=== PATIENT | female | born 1990 | race Two or more races ===

== ENCOUNTER 2024-04-12 07:12 | Observation (INO) | payer BC, SELFPAY ==
[2024-04-12] VITALS (71 sets, daily range): BP systolic 103–117; BP diastolic 62–73; PULSE 66–142; RESP 16; TEMP 36.9; O2SAT 95–100; BMI 31.1
[2024-04-12 08:15] LABS: Collection Type, Urine Clean Catch
[2024-04-12] MEDS: RINGERS LACTATED 1000 ML 1,000 ML 999 ML IV (08:18)
[2024-04-12 08:27] LABS: Bacteria,Urine 2+; Bilirubin,Urine Negative (Negative); Blood,Urine Negative (Negative); Clarity,Urine Turbid (Clear/Hazy); Color,Urine Yellow (Lt Yel-Yel); Glucose, Urine Negative (Negative); Ketones,Urine Negative (Negative); Leukocyte Esterase,Urine Positive (Negative); Nitrite,Urine Negative (Negative); PH,Urine 7.5 (5.0-7.0); Protein,Urine Trace (Neg - Trace); RBC,Urine 3 /hpf (0-3); Specific Gravity,Urine 1.021 (1.001-1.035); Squamous Epithelial Cell,Urine 19 /hpf (0-5); Urobilinogen,Urine Negative mg/dL (0.0-1.0); WBC,Urine 7 /hpf (0-5)
[2024-04-12] MEDS: BETAMET ACET/BETAMET NA PH (Celestone) 6 MG/ML VIAL 12 MG IM (08:28)
[2024-04-12] MEDS: TERBUTALINE SULF INJ 1 MG/ML VIAL 0.25 MG SC ×2 (08:31→10:13)
[2024-04-12] MEDS: cefTRIAXone/D5w 1gm IV premix 50 ML IV (10:07)
== END 2024-04-12 13:55 | disposition home or self-care (01) ==
PROVIDERS: Admitting Provider Specialist; Visit Provider Specialist
DX: O26.893 Other specified pregnancy related conditions, third trimester (principal); Z3A.34 34 weeks gestation of pregnancy; R25.2 Cramp and spasm
CPT/HCPCS: 59025; 59899; 81001; 82731; 96372; J0696; J0702; J3105; J7120

== ENCOUNTER 2024-04-13 08:27 | Outpatient (CLI) | payer BC, SELFPAY ==
[2024-04-13 08:31] VITALS: BP 109/68; PULSE 85
[2024-04-13 08:42] VITALS: BMI 31.3
[2024-04-13] MEDS: BETAMET ACET/BETAMET NA PH (Celestone) 6 MG/ML VIAL 12 MG IM (08:58)
== END 2024-04-13 10:00 | disposition home or self-care (01) ==
LOC: S4S1 08:28 → S4SX 08:29
PROVIDERS: Referring Provider Specialist; Visit Provider Specialist
DX: Z34.03 Encounter for supervision of normal first pregnancy, third trimester (principal); Z36.9 Encounter for antenatal screening, unspecified; Z3A.34 34 weeks gestation of pregnancy
CPT/HCPCS: 59025; 96372; J0702

== ENCOUNTER 2024-05-15 22:29 | Observation (INO) | payer BC, SELFPAY ==
[2024-05-15 22:35] VITALS: BP 124/80; PULSE 65; PULSE 72; RESP 16; RESP 18; RESP 99; TEMP 36.6; O2SAT 99
[2024-05-15 22:38] VITALS: BP 124/80; PULSE 65
[2024-05-15 23:11] VITALS: TEMP 36.6; BMI 33.2
[2024-05-16 00:01] VITALS: BP 113/76; PULSE 72
== END 2024-05-16 00:50 | disposition home or self-care (01) ==
PROVIDERS: Admitting Provider Specialist; Visit Provider Specialist
DX: Z34.03 Encounter for supervision of normal first pregnancy, third trimester (principal); Z3A.38 38 weeks gestation of pregnancy
CPT/HCPCS: 59025; 59899

== ENCOUNTER 2024-05-16 04:00 | Inpatient (IN) | payer BC, SELFPAY ==
--- NOTE | 2024-05-14 07:40 | ESHP_ITS ---
RE: MANUELA ORELLANA : 1990 DATE OF ADMISSION: 05/16/2024 HISTORY OF PRESENT ILLNESS: This is a 33-year-old 1, para 0 with a due date of 05/23/2024 with an intrauterine at 39 weeks and 0 days on 05/16/2024 who presents for contractions in labor with cholestasis of . The patient's care has been complicated by cholestasis of for which she has been taking ursodiol. Her bile acid levels have been less than 10 on ursodiol. Her most recent level on 04/25 was 2.3 with normal liver function tests. The patient reports normal movement. She denies any leaking or bleeding. The patient transferred to [facility] at 30 weeks of gestation. She received betamethasone on 04/12 and 04/13 for threatened labor. PAST MEDICAL HISTORY: Advanced maternal age, Rh negative, carpal tunnel syndrome, cholestasis of . ALLERGIES: NO KNOWN DRUG ALLERGIES. MEDICATIONS: 1. Ursodiol 300 mg one p.o. b.i.d. 2. vitamin 1 p.o. daily. 3. Baby aspirin 81 mg one p.o. daily. FAMILY HISTORY: Paternal grandmother has breast cancer and sister has depression and anxiety. PAST SURGICAL HISTORY: Denies. REVIEW OF SYSTEMS: She denies any chest pain, palpitations, cough, fever, shortness of breath, or lower extremity pain. PHYSICAL EXAMINATION: VITAL SIGNS: Blood pressure 110/70, heart rate 88, respirations 18, and temperature 98.2. HEENT: Oropharynx and sclerae are clear. LUNGS: Clear to auscultation bilaterally. HEART: Regular rate and rhythm. ABDOMEN: Gravid. Term size consistent with estimated weight 7 pounds. PELVIC: See RN notes. EXTREMITIES: Nontender. SKIN: No gross or lesion. NEUROLOGIC: No focal deficits. ASSESSMENT AND PLAN: Intrauterine at 39 weeks and 0 days on 05/16, cholestasis of , active labor, anticipated spontaneous vaginal delivery. Informed consent was obtained. The patient was made aware of the risks, complications, alternatives, and benefits of the proposed procedure and she agrees. DT: 13:06:18 TT: 13:40:00 Ref: [id number] - TID: [id number] MTDD
[2024-05-16] VITALS (322 sets, daily range): BP systolic 0–199; BP diastolic 0–88; PULSE 55–158; RESP 17–22; TEMP 36.8–37.8; O2SAT 80–100; BMI 31.1
[2024-05-16] MEDS: RINGERS LACTATED 500 ML 500 ML 999 ML IV (04:20)
[2024-05-16 04:44] LABS: Basophils # (Auto) 0.1 Thou/mm3 (0.0-0.2); Basophils % (Auto) 0 % (0-2.5); Eosinophils % (Auto) 0 % (0-10); Hematocrit 37.7 % (36.0-46.0); Hemoglobin 13.3 g/dL (12.0-16.0); Immature Granulocytes % (Auto) 1 % (0-0); Immature Granulocytes Auto 0.14 Thou/mm3 (0.00-0.00); Lymphocytes # (Auto) 2.1 Thou/mm3 (1.0-4.8); Lymphocytes % (Auto) 11 % (10-50); Mean Corpuscular HGB Conc 35.3 g/dl (31.0-37.0); Mean Corpuscular Hemoglobin 30.9 pg (25.0-35.0); Mean Corpuscular Volume 88 fL (80-100); Monocytes # (Auto) 0.8 Thou/mm3 (0.0-0.8); Monocytes % (Auto) 4 % (0-12); Neutrophils % (Auto) 85 % (37-80); Nucleated Red Blood Cell % 0 /100 WBC (0); Platelet Count 306 Thou/mm3 (140-440); RDW Standard Deviation 43.8 fL (36.4-46.3)
[2024-05-16] MEDS: fentaNYL CIT INJ 50 mCg/ML AMP 2ML 100 MCG IV (04:55)
[2024-05-16] MEDS: RINGERS LACTATED 1000 ML 1,000 ML 125 ML IV ×4 (05:06→08:33)
[2024-05-16 05:19] LABS: Syphilis Nonreactive (Nonreactive)
[2024-05-16] MEDS: Ampicillin Inj 2,000 MG in SODIUM CHLORIDE 0.9% (P) 100 ML 100 MG IV (07:19)
[2024-05-16] MEDS: GENTAMICIN/NS 80 MG IVPB 80 MG/50 ML PIGGYBACK 100 MG IV (08:01)
[2024-05-16] MEDS: ursodioL 300 MG CAPSULE PO (09:13)
[2024-05-16] MEDS: OXYTOCIN in NS 20 units 20 UNIT/1,000 ML BAG 125 UNIT IV (14:10)
[2024-05-16] MEDS: METHYLERGONOVINE INJ 0.2 MG/ML VIAL IM (14:22)
[2024-05-16] MEDS: LIDOCAINE HCL 1% 20 ML VIAL INFL (14:35)
[2024-05-16] MEDS: BENZO/LANO/ALOE (Dermoplast) 60 GM CAN 1 SPRAY TOP (14:36)
[2024-05-16] MEDS: IBUPROFEN TAB 400 MG TABLET 800 MG PO (14:37)
--- NOTE | 2024-05-16 14:52 | OBDSUM_ITS ---
Vacuum Assisted Delivery General Patient Counseled by physician:: Yes Informed consent to patient:: Yes Estimated weight:: 7 lb 8 oz Cervical dilation:: fully dilated station:: +2 position:: OA Molding:: No Caput:: Yes Vacuum Application Vacuum type:: Mityvac Vacuum application:: flexing median Total vacuum time (min):: 9 Maximum pressure (cm Hg):: 50 Cup Placement Flexion point identified:: Yes Cup approp. for head position:: Yes Maternal tissue excluded:: Yes Vacuum Procedure Number of pulls (contractions):: 6 Number of pop-offs:: 3 Recommended range maintained:: Yes Vacuum reduced between pulls:: Yes Advancement made each pull:: Yes Vacuum successful:: Yes Immediate Evaluation Immediate assessment:: caput Data (Snyder) Data : 1 Para: 0 Term: 0 : 0 : 0 Delivery Data (Snyder) Labor Data ROM Date: 05/16/24 ROM Time: 04:50 Rupture Type: SROM Amniotic Fluid: Clear Delivery Data EDC: 05/23/24 EDC calculated by:: LMP/early US confirmation Labor Onset Stage 1 Date: 05/16/24 Labor Onset Stage 1 Time: 04:26 Labor Onset Stage 2 Date: 05/16/24 Labor Onset Stage 2 Time: 11:32 Delivery Date: 05/16/24 Delivery Time: 14:10 Gestational age (weeks): 39 Gestational age (days): 0 Placenta Delivery Date: 05/16/24 Placenta Delivery Time: 14:40 Delivered by: Alvarez Palacios Delivery nurse: Joleen Yoder Other staff at delivery: Nurse Other staff at delivery: Nursery Nurse Other staff at delivery: Survival Specialist Other staff at delivery: Other staff at delivery: Sandra Purdy Other staff at delivery: Elke Ornelas Other staff at delivery: Jorge rhodes Other staff at delivery: garret Munroe Delivery Method Delivery: Vaginal Delivery Type: Vacuum Assisted Presentation: Vertex Position: OA Anesthesia Type Primary Anesthesia: Epidural Secondary Anesthesia: Local Placenta Placenta Delivery: Spontaneous Placenta Cultures Obtained: Yes Placenta Sent for Examination: Yes Cord Sample: Cord Blood Obtained, Cord Gases Arterial and Cord Gases Venous Lacerations #2: Perineal: 2nd degree Periurethral: 2nd degree Labial: 1st degree Perineal repair Sutures used for repair: 3.0 Chromic EBL Estimated blood loss (ml): 250 Additional Procedures None Complications Complications: None [place] Data (Snyder) Data Gender: Female Infant Weight Grams: 3140 1 Minute Total: 6 5 Minute Total: 8
[2024-05-16] MEDS: MISOPROSTOL 200 mCg TABLET 800 MCG PR (14:54)
--- NOTE | 2024-05-16 15:13 | PD.LDDS ---
DS: Providers Provider Date of admission: 05/16/24 04:00 Primary care physician: Physician No Primary/Family Admitting Provider: Alvarez Palacios MD Attending Provider on Admission: Alvarez Palacios MD Attending Provider on DC: Alvarez Palacios MD Discharging Provider: Alvarez Palacios MD DS: Diagnosis Problem List Completed Was Problem List Reviewed/Reconciled?: Yes Summary/Hosp Course Time Spent with Patient Time attestation: Total time spent providing and/or coordinating discharge services: Exam Vital Signs Temp Pulse Resp BP Pulse Ox 98.4 F 80 18 155/72 H 95 05/16/24 12:53 05/16/24 14:57 05/16/24 07:00 05/16/24 14:57 05/16/24 15:12 Discharge Plan Plan Patient Disposition: HOME (Self Care) Patient condition on transfer: Stable Prescriptions/Referrals Prescriptions/Med Rec: New amoxicillin-pot clavulanate 875-125 mg tablet 1 tab PO BID Qty: 10 0RF ibuprofen 600 mg tablet 600 mg PO Q6H PRN (Reason: pain) Qty: 30 0RF Discontinued ursodiol 300 mg capsule 300 mg PO BID Patient Comments: Take 1 capsule by mouth twice a day aspirin 81 mg Capsule 81 mg PO QDAY Referrals: No Primary/Family,Physician [Primary Care Provider] - Patient/Caregiver Discharge Instructions Discharge Activity: activity as tolerated Other Discharge Activity Instructions:: Follow up office 6 weeks. Print Language: Kyrgyz Stand Alone Forms: Kelle Award Info., Patient Portal Info Letter Discharge Order Discharge Orders: Discharge (Routine); Ordered 05/18/24 Ordered By: Alvarez Palacios Planned Discharge Date 05/18/24
[2024-05-16] MEDS: AMPICILLIN/SULBAC INJ 3 GM in SODIUM CHLORIDE 0.9% (P) 100 ML IV ×2 (17:58→23:57)
[2024-05-16 21:57] LABS: Basophils % (Auto) 0 % (0-2.5); Eosinophils % (Auto) 0 % (0-10); Hematocrit 30.8 % (36.0-46.0); Hemoglobin 10.9 g/dL (12.0-16.0); Immature Granulocytes % (Auto) 1 % (0-0); Immature Granulocytes Auto 0.18 Thou/mm3 (0.00-0.00); Lymphocytes # (Auto) 1.7 Thou/mm3 (1.0-4.8); Lymphocytes % (Auto) 8 % (10-50); Mean Corpuscular HGB Conc 35.4 g/dl (31.0-37.0); Mean Corpuscular Hemoglobin 31.5 pg (25.0-35.0); Mean Corpuscular Volume 89 fL (80-100); Monocytes # (Auto) 1.4 Thou/mm3 (0.0-0.8); Monocytes % (Auto) 7 % (0-12); Neutrophils # (Auto) 18.5 Thou/mm3 (1.8-7.7); Neutrophils % (Auto) 85 % (37-80); Nucleated Red Blood Cell % 0 /100 WBC (0); Platelet Count 243 Thou/mm3 (140-440); RDW Standard Deviation 45.2 fL (36.4-46.3); Red Blood Count 3.46 Miln/mm3 (4.00-5.20); White Blood Count 21.8 Thou/mm3 (3.6-11.0)
[2024-05-16] MEDS: ACETAMINOPHEN 325 MG TABLET 650 MG PO (23:56)
--- NOTE | 2024-05-17 00:09 | PC.NURSE ---
05/17/24 2350: pts. temp 100.0, pain 07/15. Pt states she would like some pain medication. Tylenol 650mg administered PO. Scheduled antibiotic Unasyn 3gm administered IV PB. Pt. provided with ice water and cooling cloths placed on forehead and bilateral underarms.
[2024-05-17 04:00] VITALS: BP 100/64; RESP 20; TEMP 36.9; O2SAT 97
[2024-05-17 05:28] LABS: Basophils # (Auto) 0.1 Thou/mm3 (0.0-0.2); Basophils % (Auto) 0 % (0-2.5); Eosinophils # (Auto) 0.1 Thou/mm3 (0.0-0.5); Eosinophils % (Auto) 0 % (0-10); Hematocrit 29.3 % (36.0-46.0); Hemoglobin 10.2 g/dL (12.0-16.0); Immature Granulocytes % (Auto) 1 % (0-0); Immature Granulocytes Auto 0.15 Thou/mm3 (0.00-0.00); Lymphocytes # (Auto) 2.8 Thou/mm3 (1.0-4.8); Lymphocytes % (Auto) 15 % (10-50); Mean Corpuscular HGB Conc 34.8 g/dl (31.0-37.0); Mean Corpuscular Hemoglobin 31.4 pg (25.0-35.0); Mean Corpuscular Volume 90 fL (80-100); Monocytes # (Auto) 1.5 Thou/mm3 (0.0-0.8); Monocytes % (Auto) 8 % (0-12); Neutrophils # (Auto) 14.4 Thou/mm3 (1.8-7.7); Neutrophils % (Auto) 76 % (37-80); Nucleated Red Blood Cell % 0 /100 WBC (0); Platelet Count 193 Thou/mm3 (140-440); RDW Standard Deviation 46.5 fL (36.4-46.3); Red Blood Count 3.25 Miln/mm3 (4.00-5.20)
[2024-05-17] MEDS: IBUPROFEN TAB 400 MG TABLET 800 MG PO ×3 (05:58→23:36)
[2024-05-17] MEDS: AMPICILLIN/SULBAC INJ 3 GM in SODIUM CHLORIDE 0.9% (P) 100 ML IV ×3 (05:59→19:15)
[2024-05-17 07:42] VITALS: BP 92/58; PULSE 63; RESP 16; TEMP 36.9; O2SAT 95
--- NOTE | 2024-05-17 09:51 | ESPR_ITS ---
RE: MANUELA ORELLANA : 1990 DATE OF SERVICE: 05/17/2024 S: The patient denies any prior complaints. She is voiding. She is ambulating. She tolerated diet. She is passing flatus. She denies any excessive vaginal bleeding. She denies any dizziness or lightheadedness. She denies any chest pain, palpitations, shortness of breath or lower extremity pain. She denies any itching. O: Vital Signs: Blood pressure is 100/64, heart rate 88, respirations 20, temperature is 98.5, pulse ox is 97% on room air. T-max is 100.0. Lungs: Clear to auscultation bilaterally. Heart: Regular rate and rhythm. Abdomen: Fundus is firm. Uterus nontender. Extremities: Nontender. LABORATORY DATA: Hemoglobin pre-delivery is 13.3, post-delivery is 10.2. White blood cell count is 19.0. ASSESSMENT: 1. day #1 status post vacuum assisted vaginal delivery. 2. endometritis. P: Continue Unasyn. Possible discharge home tomorrow. DT: 07:24:16 TT: 09:50:00 Ref: [id number] - TID: [id number] MTDD
[2024-05-17 11:41] VITALS: BP 95/62; PULSE 84; RESP 14; TEMP 36.9; O2SAT 96
[2024-05-17 11:52] VITALS: BP 100/65; PULSE 81; RESP 14; TEMP 36.8; O2SAT 95
[2024-05-17 17:00] VITALS: BP 104/69; PULSE 63; RESP 18; TEMP 36.6; O2SAT 97
[2024-05-17 19:55] VITALS: BP 106/67; PULSE 61; RESP 16; TEMP 37; O2SAT 95
[2024-05-18] MEDS: AMPICILLIN/SULBAC INJ 3 GM in SODIUM CHLORIDE 0.9% (P) 100 ML IV ×2 (00:14→06:08)
[2024-05-18 04:15] VITALS: BP 112/74; PULSE 51; RESP 16; TEMP 36.5; O2SAT 96
[2024-05-18 05:33] LABS: Basophils # (Auto) 0.1 Thou/mm3 (0.0-0.2); Basophils % (Auto) 0 % (0-2.5); Eosinophils # (Auto) 0.1 Thou/mm3 (0.0-0.5); Eosinophils % (Auto) 1 % (0-10); Hematocrit 28.8 % (36.0-46.0); Hemoglobin 9.7 g/dL (12.0-16.0); Immature Granulocytes % (Auto) 1 % (0-0); Lymphocytes # (Auto) 3.5 Thou/mm3 (1.0-4.8); Lymphocytes % (Auto) 26 % (10-50); Mean Corpuscular HGB Conc 33.7 g/dl (31.0-37.0); Mean Corpuscular Volume 92 fL (80-100); Monocytes # (Auto) 0.9 Thou/mm3 (0.0-0.8); Monocytes % (Auto) 7 % (0-12); Neutrophils # (Auto) 8.8 Thou/mm3 (1.8-7.7); Neutrophils % (Auto) 65 % (37-80); Nucleated Red Blood Cell % 0 /100 WBC (0); Platelet Count 187 Thou/mm3 (140-440); RDW Standard Deviation 47.9 fL (36.4-46.3); Red Blood Count 3.13 Miln/mm3 (4.00-5.20); White Blood Count 13.5 Thou/mm3 (3.6-11.0)
[2024-05-18 07:56] VITALS: BP 112/60; PULSE 53; RESP 16; TEMP 36.4; O2SAT 97
--- NOTE | 2024-05-18 12:36 | ESPR_ITS ---
RE: MANUELA ORELLANA : 1990 DATE OF SERVICE: 05/18/2024 S: day #2, the patient denies any problem or complaint. She is voiding. She is ambulating. She is tolerating regular diet. She is passing flatus. She denies any excessive vaginal bleeding. She denies any dizziness or lightheadedness. She denies any chest pain, palpitations, shortness of breath or lower extremity pain. O: Vital Signs: Blood pressure is 112/60, heart rate 53, respirations 16, temperature 97.6, pulse oximetry 97% on room air. Lungs: Clear to auscultation bilaterally. Heart: Regular rate and rhythm. Abdomen: Fundus is firm, nontender. LABORATORY DATA: Hemoglobin is 9.7, white blood cell count is 13.5. ASSESSMENT: day #2, status post vacuum-assisted vaginal delivery, endometritis. P: Discharge home on Augmentin. Follow up in the office in six weeks. Discharge instructions given. DT: 11:09:03 TT: 12:35:00 Ref: [id number] - TID: [id number]
== END 2024-05-18 13:49 | disposition home or self-care (01) | DRG 806 ==
LOC: S4SX 14:29 → S4NX 17:43
PROVIDERS: Admitting Provider Specialist; Visit Provider Specialist
DX: O26.643 Intrahepatic cholestasis of pregnancy, third trimester (principal); O86.12 Endometritis following delivery; O70.1 Second degree perineal laceration during delivery; Z3A.39 39 weeks gestation of pregnancy; Z37.0 Single live birth; E78.79 Other disorders of bile acid and cholesterol metabolism; K76.89 Other specified diseases of liver
CPT/HCPCS: 36415; 59409; 85025; 85461; 86780; 86850; 86870; 86900; 86901; 87070; 87205; 94762; J0290; J0295; J1580; J2210; J2371; J2590; J2790; J2795; J3010; J3490; J7120; S0191; A9270

== ENCOUNTER 2024-05-22 14:08 | Outpatient (AMBR) | payer BC, SELFPAY ==
--- NOTE | 2024-05-22 16:19 | LAC.VISIT ---
Assessment LAC Assessment Breast Feeding Assessment Date of : 05/16/24 Current Age of baby: 6 (days) Breast Feeding Ability: Poor [place] Complications Comment: Baby has not been able to stay on the breast, refuses even with nipple shield. mom states that she never attempted to latch baby when she was in the NICU. She only fed by bottle or syringe. Activity Level: Sleepy Muscle Tone: With In Normal Limits Suck Quality: Tongue Retracts Effective Suck: No Lip Seal: Poor and Tight Lips Feeding Posistion: Football Additional Latch or Posistion Assistance Needed: Minimal Breast Feeding Comment: tired to get baby to latch, was was extremely sleepy. mom stated last feed was only 1 1/2 hours ago and baby took about 20 ml. feel that baby is to full and tired from the drive to want to nurse. explained that it would be good to have baby more alert and awake for a feed. LAC Intervention Interventions Tools: Nipple Shield and Pump Other Tools: SNS, issued a NG tube and syringe to assist in breast feed. since baby is refusing to stay on even the shield assume it is due to let down and easier milk without working so hard. showed parents how to use device. explained that they could come back tomorrow if they have difficulties overnight with the devices. Nipple Shield Size: Medium Techniques Discussed: Latch, Position, Expression and Pumping LAC [place] Oral Assessment [place] Oral Assessment Prenulum Level: Posterior Lip: Tight Upper Lip Palate: Normal / Intact Oral Assessment Comment: baby no able to keep latch on bottle, parents state that milk will dribble out during feed. explained tight lip and tongue tie to them and will refer them to dentist/oral surgeon for consult. Dental Referral made: Yes LAC Education Education : Education Topics: Infant Stomach Capacity, [place] Nutrition, Suppression with Formula Use, Warm Compress with Engorgement, Nipple Care, Risk of Improper Latch Position, Signs of Adequate Intake, Importance of Skin to Skin, Warning Signs of Inadequate Intake and Stomach Capacity With Regard to Formula Education Topic Comment: Stressed the use of skin to skin to reboot baby since she was having an aversion to going to breast. explained why this could help to reestablish this for baby to only do breast. explained having bottles given by someone other than mom. Teaching Methods: Verbal instruction, Demonstration and Hand Out Resource Information Given: [facility] Services and Dental Referral OP DC Assessment Discharge Visit Complete?: Yes
== END 2024-06-07 23:59 | disposition home or self-care (01) ==
LOC: HODLAC 14:08
DX: Z39.1 Encounter for care and examination of lactating mother (principal)

== ENCOUNTER 2024-05-23 14:42 | Outpatient (AMBR) | payer BC, SELFPAY ==
--- NOTE | 2024-05-23 15:59 | LAC.VISIT ---
Assessment Alternative Milk Expression Alternative Milk Expression Alternative Method Used: Yes Method Used: Pumping Pump Used: Electric Pumping Frequency Comment: Mom is still having to pump as baby will not latch even with aids. LAC Intervention Interventions Tools: Nipple Shield Other Tools: Supplemental Nursing System used to assist mom with keeping baby intersted at the breast. Baby super sleepy after car ride and did all things to wake her up. Baby woke up enough to latch to shield at the breast. Using SNS with breast milk helped to keep baby at the breast. mom feels she is going to be able to use these to help her get baby back to breast. she will follow up as needed. Nipple Shield Size: Medium Techniques Discussed: Latch, Position and Pumping LAC Latch Score LATCH Score Latch: Repeat Attempt to Hold Nipple Audible Swallow: Few, With Stimulation Nipple Type: Everted After Stimulation Comfort: Soft, Nontender Hold: Full Assistance Needed Total Score: 6 OP DC Assessment Discharge Visit Complete?: Yes
== END 2024-06-07 23:59 | disposition home or self-care (01) ==
LOC: HODLAC 14:42
DX: Z39.1 Encounter for care and examination of lactating mother (principal)